=== PATIENT | female | born 1965 | race African-American/Black ===

== ENCOUNTER 2020-12-10 09:57 | Emergency (ER) | payer OTHER ==
[~2020-12-10] VITALS: Ht 167.6 cm; Wt 101.0 kg
[2020-12-10] MEDS ORDERED: LACTATED RINGERS 1,000 ML IV SCH (12:00)
[2020-12-10] MEDS ORDERED: IBUPROFEN 400MG TABLET PO ONE (12:00)
[2020-12-10] MEDS ORDERED: METOCLOPRAMIDE HCL 10MG/2ML VIAL IV ONE (12:00)
[2020-12-10] MEDS ORDERED: ACETAMINOPHEN 325MG TABLET PO ONE (12:00)
[2020-12-10 12:08] LABS: HEMATOCRIT. 41.2 % (36.0-48.0); HEMOGLOBIN. 13.5 g/dL (12.0-16.0); MEAN CORPUSCULAR HEMOGLOBIN 26.8 pg (28.0-32.0); MEAN CORPUSCULAR VOLUME 81.7 fL (81.0-99.0); MEAN PLATELET VOLUME 8.4 fl (7.4-10.4); PLATELET 287 x1000/uL (130-400); RED BLOOD CELL COUNT 5.04 mill/uL (4.2-5.4); RED CELL DISTRIBUTION WIDTH 15.4 % (11.6-14.6)
[2020-12-10 12:18] LABS: CHLORIDE 108 mEq/L (98-107)
[2020-12-10 12:52] LABS: HCG SCREEN NEGATIVE
[2020-12-10 13:09] LABS: PLATELET ESTIMATE NORMAL
[2020-12-10] MEDS ORDERED: IMOD MT (16:26)
[2020-12-10] MEDS ORDERED: METO10TA3 MT ×2 (16:27)
[2020-12-10] MEDS ORDERED: METO-293 MT (16:27)
[2020-12-10 17:15] VITALS: BP 136/65
== END 2020-12-10 17:18 | disposition home or self-care (01) ==
LOC: ER 10:26
DX: R10.9 Unspecified abdominal pain (principal); R11.2 Nausea with vomiting, unspecified; R19.7 Diarrhea, unspecified
CPT/HCPCS: 36415; 80048; 80076; 83690; 84484; 84703; 85025; 96361; 96374; 99283; J2765